=== PATIENT | male | born 1960 | race African-American/Black ===

== ENCOUNTER 2020-10-21 10:15 | Emergency (ER) | payer MEDICAID ==
[~2020-10-21] VITALS: Ht 175.3 cm; Wt 90.7 kg
--- NOTE | 2020-10-21 10:15 | NUR ---
ED Nurse Note: pt stated that he had a catheter placed 2 days ago and hasn't been able to pee since. says his prostate is enlarged. first thing pt said is he needs ativan to calm down. attempted to put pt in a gown so he would be ready for dr. matias pacing in room and would not show this RN the catheter.
--- NOTE | 2020-10-21 10:43 | Emergency Room Report ---
History of Present Illness General Chief Complaint: Male Urogenital Problems Source: Patient, EMS Present Illness HPI Patient presents saying that his catheter is not draining urine. He has some discomfort in his lower abdomen at this time. He agrees that he has a catheter because of a large prostate. The patient is also requesting Ativan. He says that he has been doing methamphetamine. He is also delusional and sees that there are people in the room and also says that he is done bad things and people are after him. The patient denies suicidal or homicidal ideation. Patient states that he takes gabapentin. One point he agrees that he has taken Seroquel but then denies that. Unknown if the patient has been exposed to Covid positive contacts. No fevers, chills, sore throat, chest pain, palpitations, nausea, vomiting, diarrhea, abdominal pain, shortness of breath, joint pain, rashes, headache. Allergies: Coded Allergies: No Known Allergies (Unverified , 10/21/20) COVID-19 Screening Contact w/high risk pt: No Experienced COVID-19 symptoms?: No COVID-19 Testing performed [employer]: No Patient History Past Medical History: see triage record Social History: Reports: smoking, drug use; Denies: alcohol use Social History Narrative Homeless, stays with friends Reviewed Nursing Documentation: PMH: Agreed; PSxH: Agreed Review of Systems All Other Systems: negative except mentioned in HPI Physical Exam Vital Signs Date Time Temp Pulse Resp B/P (MAP) Pulse Ox O2 Delivery O2 Flow Rate FiO2 10/21/20 10:10 97.5 90 20 160/70 (100) 98 Room Air Sp02 EP Interpretation: reviewed, normal General Appearance: well appearing, no apparent distress, GCS 15 Head: normocephalic Eyes: bilateral eye normal inspection, bilateral eye PERRL, bilateral eye EOMI ENT: moist mucus membranes - Edentulous Neck: supple Respiratory: lungs clear, normal breath sounds Cardiovascular #1: regular rate, rhythm Cardiovascular #2: 2+ radial (R) Gastrointestinal: normal inspection, normal bowel sounds, non tender, no mass, non-distended Genitourinary: other - Uncircumcised male with Jamison catheter placed. Jamison bag is completely full and almost exploding. Musculoskeletal: back normal, normal range of motion, gait/station normal Neurologic: alert, oriented x3, grossly normal Psychiatric: no suicidal/homicidal ideation, anxious, other - Mildly delusional and paranoid Skin: no rash, warm/dry Medical Decision Making Homeless Attestation I, The treating physician Dr. Garcia, have assessed and agree that patient is medically stable for discharge to an outpatient disposition. Diagnostic Impression: Primary Impression: UTI (urinary tract infection) Qualified Codes: T83.511A - Infection and inflammatory reaction due to indwelling urethral catheter, initial encounter; N39.0 - Urinary tract infection, site not specified Additional Impression: Amphetamine abuse ER Course Patient presents with complaints that the urinary catheter is not draining. The Jamison bag is completely full. Differential includes dysfunctional Jamison catheter, urinary tract infection, and attention to draining urinary catheter bag amongst others. In addition the patient has paranoid delusions. He denies taking any psychiatric medication at this time. He is not suicidal or homicidal. He is requesting Ativan. Vistaril was given. Urinalysis is. Urinalysis with some pyuria. Tox screen positive for amphetamines. Jamison catheter bag drains in patient had symptomatic improvement. Patient begun on Macrobid. Patient improved and purposeful without overwhelming delusions at this time. Discussed treatment plan with patient. Patient stable for outpatient observation and treatment. Laboratory Tests Test 10/21/20 10:35 Urine Color Pale yellow Urine Appearance Slightly cloudy Urine pH 5 (4.5-8.0) Urine Specific [place] 1.020 (1.005-1.035) Urine Protein 3+ (NEGATIVE) H Urine Glucose (UA) 2+ (NEGATIVE) H Urine Ketones 2+ (NEGATIVE) H Urine Blood 5+ (NEGATIVE) H Urine Nitrite Negative (NEGATIVE) Urine Bilirubin Negative (NEGATIVE) Urine Urobilinogen Normal MG/DL (0.0-1.0) Urine Leukocyte Esterase 3+ (NEGATIVE) H Urine RBC Tntc /HPF (0 - 0) H Urine WBC 10-15 /HPF (0 - 0) H Urine Squamous Epithelial Cells Occasional /LPF Urine Bacteria Few /HPF (NONE) Urine Opiates Screen Negative (NEGATIVE) Urine Barbiturates Screen Negative (NEGATIVE) Phencyclidine (PCP) Screen Negative (NEGATIVE) Urine Amphetamines Screen Positive (NEGATIVE) H Urine Benzodiazepines Screen Negative (NEGATIVE) Urine Cocaine Screen Negative (NEGATIVE) Urine Marijuana (THC) Screen Negative (NEGATIVE) Last Vital Signs Date Time Temp Pulse Resp B/P (MAP) Pulse Ox O2 Delivery O2 Flow Rate FiO2 10/21/20 12:35 97.9 86 15 152/68 99 Room Air Status: improved Disposition: OTH-HOMELESS Condition: Improved Scripts Nitrofurantoin Monohyd/M-Cryst* (MACROBID 100 MG*) 100 Mg Capsule 100 MG ORAL EVERY 12 HOURS, #14 CAP Prov: Antonio Garcia MD 10/21/20 Antonio Garcia MD Oct 21, 2020 10:43
--- NOTE | 2020-10-21 10:49 | NUR ---
ED Nurse Note: pt stated that he used a little bit of meth off the street. he stated he is seeing things and afraid someone is going to get him. reassurance given to pt. assessed pt's shannon, pt's leg bag was full, pt hadn't been draining it. drained bag and pt stated that it felt better, pt made hand gester like his penis was spasming. urine is jeferson in color
--- NOTE | 2020-10-21 10:52 | NUR ---
ED Nurse Note: reported to ERMD that pt's shannon is draining. orders to hold off on changing it out. reassess later.
[2020-10-21 10:53] VITALS: BP 160/70
[2020-10-21 11:02] LABS: APPEARANCE,URINE SLIGHTLY CLOUDY; BILIRUBIN, URINE NEGATIVE (NEGATIVE); GLUCOSE, URINE (UA) 2+ (NEGATIVE); KETONES,URINE 2+ (NEGATIVE); LEUKOCYTE ESTERASE ,URINE 3+ (NEGATIVE); NITRITE,URINE NEGATIVE (NEGATIVE); PH,URINE 5 (4.5-8.0); PROTEIN,URINE 3+ (NEGATIVE); UROBILINOGEN,URINE NORMAL MG/DL (0.0-1.0)
[2020-10-21 11:15] LABS: COLOR,URINE PALE YELLOW
[2020-10-21] MEDS ORDERED: NITROFURANTOIN100 M2 ORAL (12:03)
--- NOTE | 2020-10-21 12:09 | NUR ---
ED Nurse Note:pt stated that he is seeing bugs everywhere. reassured there are no bugs. pt stated he only did 2 to 3 lines of meth, snorted. gave pt food
[2020-10-21 12:35] VITALS: BP 152/68
--- NOTE | 2020-10-21 12:35 | NUR ---
ER DISCHARGE NOTE: Patient is cleared to be discharged per ERMD, pt is aox4, on room air, with stable vital signs. pt was given dc and prescription instructions, [employer] were given to patient, pt was able to verbalize understanding, pt id band removed without complications. pt is able to ambulate with steady gait. pt took all belongings.
== END 2020-10-21 12:35 | disposition other institution (70) ==
LOC: EDBD 10:15 → EMR 10:51
DX: T83.511A Infection and inflammatory reaction due to indwelling urethral catheter, initial encounter (principal); N39.0 Urinary tract infection, site not specified; F15.10 Other stimulant abuse, uncomplicated; F17.200 Nicotine dependence, unspecified, uncomplicated
CPT/HCPCS: 80307; 81003; 87086; 87181; Z7502; 99283